=== PATIENT | male | born 1960 | race Caucasian/White ===

== ENCOUNTER 2025-02-01 14:10 | Emergency (ER) | payer OTHER, SELFPAY ==
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
[2025-02-01 14:21] VITALS: BP 151/87; PULSE 100; RESP 19; TEMP 36.6; O2SAT 97; BMI 33.9
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
[2025-02-01 15:36] VITALS: BP 151/87; PULSE 100; RESP 19; TEMP 36.6; O2SAT 97
--- OUTSIDE RECORDS SUMMARY | 2025-02-01 17:53 | XMS_ITS | Encounter Summary ---
Author Organization [employer] [facility] Address [address] [place] [address] [address] [place] [address] Care Team Providers Care Copy Center Operator Name Role Phone Travis Ortiz MD Primary Care Prov ider Encounter Details Date Type Department Care Team (Late st Contact Info) Description 01/15/2024 Orders Only [facility] [address] [place] [address] Travis Ortiz MD [address] [place] [address] Social History Tobacco Use Types Packs/Day Years Used Date Smoking Tobacco: Never Assessed Depression Answer Date Recorded Patient Health Questionnaire-2 Score 0 01/15/2024 Sex and Gender Information Value Date Recorded Sex Assigned at Male 09/24/2022 10:37 AM EDT Legal Sex Male 10:37 AM EDT Gender Identity Male 09/24/2022 10:37 AM EDT Sexual Orientation Straight 09/24/2022 10 :37 AM EDT documented as of this encounter Plan of Treatment Not on file documented as of this encounter Visit Diagnoses Not on filedocumented in this encounter Care Teams Copy Center Operator Relationship Specialty Start Date End Date Travis Ortiz MD [address] [place] [address] PCP - General Internal Medicine 03/21/21 documented as of this encounter
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
--- OUTSIDE RECORDS SUMMARY | 2025-02-01 17:53 | XMS_ITS | Clinical Summary ---
Author Organization [employer] Address [address] [facility] [address] [place] [address] Care Team Providers Care Denture Technician Name Role Phone Travis Ortiz MD Primary Care Prov ider Allergies No known active allergies Medications albuterol 108 (90 Base) MCG/ACT inhaler INHALE 2 PUFFS BY MOUTH EVERY 4 TO 6 HOURS NEEDED 8.5 g 3 3 Active Fluticasone-Salmete rol (Wixela Inhub) 500-50 MCG/ACT aerosol powder Take 500 mg by mouth 2 times daily. 180 each 2 4 Active rosuvastatin (Crestor) 40 MG tabletIndications:M ixed hyperlipidemia TAKE 1 TABLET BY MOUTH EVERY DAY IN THE MORNING 90 tablet 3 4 Active lisinopril-hydroCHL OROthiazide 20-12.5 MG tabletIndications:P rimary hypertension TAKE 1 TABLET BY MOUTH EVERY DAY IN THE MORNING 90 tablet 3 4 Active Active Problems Problem Noted Date Diagnosed Date Primary hypertension 08/20/2023 Assessment & Plan (09/17/2024 12:47 AM EDT): Controlled, continue lisinopril/hydrochlorothiazide, reinforced low sodium diet and exercise as tolerated Assessment & Plan (06/09/2024 3:19 PM EDT): Controlled, reinforced low sodium diet and exercise as tolerated, keep bp log, target <140/90 Assessment & Plan (01/16/2024 9:35 AM EST): Controlled, no changes will be made, reinforced low sodium diet and exercise as tolerated Assessment & Plan (08/20/2023 4:24 PM EDT): Controlled as per patient not above 140/90, reinforced low sodium diet, continue lisinopril/hctz. New labs will be ordered Mixed hyperlipidemia 08/20/2023 Assessment & Plan (06/09/2024 3:20 PM EDT): Controlled, LDL <100, on rosuvastatin 40mg, will order new labs for guidance Assessment & Plan (08/20/2023 4:24 PM EDT): On rosuvastatin, will order labs for guidance of therapy Prostate cancer screening 08/20/2023 Assessment & Plan (08/20/2023 4:24 PM EDT): Will order PSA for screening, no red flags Screening for colon cancer 08/20/2023 Assessment & Plan (08/20/2023 4:30 PM EDT): Done on 2019 good for 5 years Mixed simple and mucopurulent chronic bronchitis 08/20/2023 Assessment & Plan (08/20/2023 4:33 PM EDT): Patient cannot afford advair copayment, will switch to symbicort, ontinue albuterol rescue Encounters Date Type Department Care Team Description 02/01/2025 Orders Only [facility] External Provider, [facility] from Last 3 Months Social History Tobacco Use Types Packs/Day Years Used Date Smoking Tobacco: Every Day Cigarettes 0.5 42.2 Started: 1982 Smokeless Tobacco: Never Tobacco Cessation:Ready to Q uit: Not Asked; Counseling Given: Not Answered Alcohol Use Standard Drinks/Week Comments Never 0 (1 standard drink = 0.6 oz pur e alcohol) Depression Answer Date Recorded Patient Health Questionnaire-2 Score 0 01/15/2024 Sex and Gender Information Value Date Recorded Sex Assigned at Male 09/24/2022 10:37 AM EDT Legal Sex Male 10:37 AM EDT Gender Identity Male 09/24/2022 10:37 AM EDT Sexual Orientation Straight 09/24/2022 10 :37 AM EDT Last Filed Vital Signs Vital Sign Reading Time Taken Comments Blood Pressure 117/77 08/18/2024 2:58 PM EDT Pulse 92 06/07/2022 12:07 AM EDT Temperature - - Respiratory Rate - - Oxygen Saturation - - Inhaled Oxygen Concentration - - Weight 97.5 kg (215 lb) 06/07/2022 12:07 AM EDT Height 165.1 cm (5' 5 ) 06/07/2022 12:07 AM EDT Body Mass Index 35.78 06/07/2022 12:07 AM EDT Plan of Treatment Health Maintenance Due Date Last Done Comments CT Colonography 1960 Colonoscopy 1960 Colorectal Cancer Screening 1960 FIT DNA/Cologuard 1960 FIT 1960 FOBT 1960 SDOH Screening 1960 Sigmoidoscopy 1960 Alcohol/Substance Use Screening 1972 Pneumococcal Vaccine: 50+ Years (2 of 2 - PCV) 11/07/2018 11/07/2017 RSV Patients and Patients Aged 60 years or older (1 - Risk 60-74 years 1-dose series) 2020 COVID-19 Vaccine ( season) 2024 10/28/2022, 05/02/2022, 10/27/2021, Additional history exists Influenza Vaccine (#1) 2024 , 09/15/2021, 11/07/2017 Depression Screening 01/15/2025 01/15/2024, 01/15/20 24 Lung Cancer Screening 07/20/2025 07/20/2024 Tobacco Screening 08/18/2025 08/18/2024 Lipid Panel 07/20/2029 07/20/2024, 10/25, 09/17/2022, Additional history exists DTaP/Tdap/Td Vaccines (2 - Td or Tdap) 06/07/2032 06/07/2022 HIV Screening Completed 09/17/2022 Hepatitis C Screening Completed 09/17/2022 Zoster Vaccines Completed 12/15/2022, 06/07/2022 HIB Vaccines Aged Out No longer eligi ble based on patient's age to complete this topic HPV Vaccines Aged Out No longer eligi ble based on patient's age to complete this topic Hepatitis A Vaccines Aged Out No long er eligible based on patient's age to complete this topic Hepatitis B Vaccines Aged Out No long er eligible based on patient's age to complete this topic IPV Vaccines Aged Out No longer eligi ble based on patient's age to complete this topic Meningococcal Vaccine Aged Out No krishan ángel eligible based on patient's age to complete this topic RSV under 20 months Aged Out No longe r eligible based on patient's age to complete this topic Rotavirus Vaccines Aged Out No longer eligible based on patient's age to complete this topic Procedures Procedure Name Priority Date/Time Associated Diagnosis Comments XR LUMBAR SPINE 2-3 VIEWS Routine 02/01/2025 2:23 PM EDT LDCT LUNG SCREENING Routine 07/20/2024 4 :25 PM EDT LIPID PANEL, STANDARD Routine 07/20/2024 8:07 AM EDT Primary hypertension ZZZ HISTORICAL HEPATITIS C AB W/REFL TO HCV RNA, QN, PCR Routine 09/17/2022 8:36 AM EDT HIV 1/2 ANTIGEN/ANTIBODY, FOURTH GENERATION W/RFL Routine 09/17/2022 8:36 AM EDT from Last 3 Months or Most Recently Relevant to Health Maintenance Results * XR Lumbar Spine 2-3 Views (02/01/2025 2:23 PM EDT) Anatomical Region Laterality Modality Spine, L-spine Radiographic Velia ging 02/01/2025 2:23 PM EDT Narrative 02/01/2025 3:16 PM EDT ? [facility] ?[address] ?[place] [address] ?XRay Report ? Signed ? Patient: Kalli,Jacobo ?MR#: [id number] ?? 34 ? : 1960 ?Acct:[id number] ? Age/Sex: 64 / M ?ADM Date: 03/10/25 ? Loc: HO.ED ? Attending Dr: ? Ordering Physician: Karina Munguia ?? Date of Service: 02/01/25 ?? Procedure(s): XR lumbar spine 2-3V ?? Accession Number(s): [id number] ? cc: Travis Ortiz MD; Karina Munguia [...] DD/ 1423 ? TD/TT: 02/01/25 1507 ? Regulatory Associate: ? Procedure Note Ivan Jj - 02/01/[address] [address] XRay Report Signed Patient: Jacobo MahanMR#: [id number] : 1960Acct:[id number] Age/Sex: 64 / MADM Date: 02/01/25 Loc: HO.ED Attending Dr: Ordering Physician: Karina Munguia Date of Service: 02/01/25 Procedure(s): XR lumbar spine 2-3V Accession Number(s): [id number] cc: Travis Ortiz MD; Karina Munguia EXAMINATION: [...] Norbert Tee MD 02/01/2025 03:13 PM EDT RP Dictated By: Norbert Estrada MD Signed By: <Electronically signed by Norbert Fontaine MDin OV> 02/01/25 1513 DD/ 1423 TD/TT: 02/01/25 1507 Regulatory Associate: [facility] External Provider IMG XR PROCEDURES Final Result * CT Lung Screening Low dose (07/20/2024 4:25 PM EDT) Anatomical Region Laterality Modality Lung Computed Tomogra phy 07/20/2024 4:25 PM EDT Narrative 08/14/2024 12:53 AM EDT ? [facility] ?[address] ?[place] [address] ? CT Scan Report ? Signed ? Patient: Kamran,Jacobo ?MR#: [id number] ?? [id number] ? : 1960 ?Acct:[id number] ? Age/Sex: 64 / M ?ADM Date: 08/26/24 ? Loc: HO.CT ? Attending : Christelle Israel PA-C ? Ordering Physician: Christelle Israel PA-C ?? Date of Service: 07/20/24 ?? Procedure(s): CT lung screening ?? Accession Number(s): [id number] ? cc: Travis Ortiz MD; Christelle Israel PA-C ? EXAMINATION: ?? CT LOW-DOSE SCREENING CHEST WITHOUT CONTRAST ? CLINICAL INFORMATION: ?? Nicotine dependence, cigarettes, uncomplicated. The patient is a ?? current smoker with a 29 pack-year history of smoking. ? COMPARISON: ?? CT chest August 03, 2022. ? TECHNIQUE: ?? Multidetector volumetric CT imaging of the chest is performed on a ?? Siemens SOMATOM Definition scanner without contrast using low dose ?? technique. Additional 2D coronal and sagittal reformatted images and ?? axial 3D maximum intensity projection (MIP) images are generated on the ?? CT workstation. ? This CT examination was performed using dose optimization techniques as ?? appropriate, variously including the following: ?? *Automated exposure control ?? *Adjustment of mA and/or kV according to patient size (this includes ?? techniques or standardized protocols for targeted exams where dose is ?? matched to indication/reason for exam; i.e. extremities or head) ?? *Use of iterative reconstruction technique ? TOTAL EXAM DLP: ?? 61 mGy-cm. ? CTDIvol: ?? 2.07 mGy. ? FINDINGS: ? PULMONARY NODULES: There is a single tiny 1 to 2 mm punctate nodule in ?? the right lower lobe (5:203). No suspicious pulmonary nodules. ? LUNGS: Lungs bilaterally symmetrically expanded. There is mild ?? emphysema and bronchial thickening without bronchiectasis. No effusion ?? or pneumothorax. Central airways patent. ? MEDIASTINUM: No mediastinal, hilar or axillary adenopathy or free fluid ?? collection. ? CORONARY ARTERY CALCIFICATION: Moderate. ? THYROID GLAND: Unremarkable to the extent seen. ? CARDIOVASCULAR STRUCTURES: Aortic and heart size normal. No pericardial ?? effusion. Pericardial calcification is present. ? CHEST WALL/AXILLA: Unremarkable. ? UPPER ABDOMEN: Included portions of the solid organs in the upper ?? abdomen unremarkable on noncontrast imaging. ? OSSEOUS STRUCTURES: No suspicious focal findings. ? CT/CT lung screening ?? IMPRESSION: ?? Unremarkable examination. ? ASSESSMENT: ?? 1. Lung-RADS Category 2: Benign appearance or behavior of nodules. N/A ? 2. Lung-RADS Category S: Negative. There are no clinically significant ?? or potentially clinically significant findings not related to the lungs ?? requiring urgent additional evaluation. ? RECOMMENDATION: ?? Continued routine annual low-dose CT lung screening in 1 year is ?? recommended. An order for CT CHEST LOW DOSE CANCER SCREENING ([id number]) ?? can be placed. ? Electronically signed by: ??Alistair Shukla MD ??08/14/2024 12:50 AM EDT ?? RP ? Dictated By: ?Alistair Shukla MD ? Signed By: ?<Electronically signed by Alistair Shukla MD in OV> ? 08/14/240 ? DD/ 1625 ? TD/TT: 07/20/24 1639 ? Regulatory Associate: SS ? Procedure Note Ivan Jj - 08/14/[address] [place] [address] [address] Scan Report Signed Patient: Jacobo AndrewMR#: [id number] : 1960Acct:[id number] Age/Sex: 64 / MADM Date: 07/20/24 Loc: HO.CT Attending Dr: Christelle Israel PA-C Ordering Physician: Christelle Israel PA-C Date of Service: 07/20/24 Procedure(s): CT lung screening Accession Number(s): [id number] cc: Travis Ortiz MD; Christelle Israel PA-C EXAMINATION: CT LOW-DOSE SCREENING CHEST WITHOUT CONTRAST CLINICAL INFORMATION: Nicotine dependence, cigarettes, uncomplicated. The patient is a current smoker with a 29 pack-year history of smoking. COMPARISON: CT chest August 03, 2022. TECHNIQUE: Multidetector volumetric CT imaging of the chest is performed on a Siemens SOMATOM Definition scanner without contrast using low dose technique. Additional 2D coronal and sagittal reformatted images and axial 3D maximum intensity projection (MIP) images are generated on the CT workstation. This CT examination was performed using dose optimization techniques as appropriate, variously including the following: *Automated exposure control *Adjustment of mA and/or kV according to patient size (this includes techniques or standardized protocols for targeted exams where dose is matched to indication/reason for exam; i.e. extremities or head) *Use of iterative reconstruction technique TOTAL EXAM DLP: 61 mGy-cm. CTDIvol: 2.07 mGy. FINDINGS: PULMONARY NODULES: There is a single tiny 1 to 2 mm punctate nodule in the right lower lobe (5:203). No suspicious pulmonary nodules. LUNGS: Lungs bilaterally symmetrically expanded. There is mild emphysema and bronchial thickening without bronchiectasis. No effusion or pneumothorax. Central airways patent. MEDIASTINUM: No mediastinal, hilar or axillary adenopathy or free fluid collection. CORONARY ARTERY CALCIFICATION: Moderate. THYROID GLAND: Unremarkable to the extent seen. CARDIOVASCULAR STRUCTURES: Aortic and heart size normal. No pericardial effusion. Pericardial calcification is present. CHEST WALL/AXILLA: Unremarkable. UPPER ABDOMEN: Included portions of the solid organs in the upper abdomen unremarkable on noncontrast imaging. OSSEOUS STRUCTURES: No suspicious focal findings. CT/CT lung screening IMPRESSION: Unremarkable examination. ASSESSMENT: 1. Lung-RADS Category 2: Benign appearance or behavior of nodules. N/A 2. Lung-RADS Category S: Negative. There are no clinically significant or potentially clinically significant findings not related to the lungs requiring urgent additional evaluation. RECOMMENDATION: Continued routine annual low-dose CT lung screening in 1 year is recommended. An order for CT CHEST LOW DOSE CANCER SCREENING ([id number]) can be placed. Electronically signed by: Alistair Shukla MD 08/14/2024 12:50 AM EDT Dictated By: Alistair Shukla MD Signed By: <Electronically signed by Alistair Shukla MD in OV> 08/14/24 0050 DD/ 1625 TD/TT: 07/20/24 1639 Regulatory Associate: SS [facility] External Provider IMG CT PROCEDURES Final Result * Lipid Panel, Standard (07/20/2024 8:07 AM EDT) Triglycerides 82 <150 mg/dL [facility] Comment:Desirable Triglyceri de: less than 150 mg/dLBorderline High Triglyceride 150-199 mg/dLHigh Triglyceride: 200-499 mg/dLVery High Triglyceride: greater than or equal to 5OO mg/dL Cholesterol 118 <200 mg/dL [facility] Comment:Desirable Cholestero l: less than 200 mg/dLBorderline High Cholesterol: 200-239 mg/dLHigh Cholesterol: greater than 239 mg/dL LDL Cholesterol Calculated 59 <100 mg/dL [facility] Comment:Desirable LDL: less than 100 mg/dLNear Optimal/Above Optimal LDL: 110- 129 mg/dLBorderline High LDL: 130-159 mg/dLHigh LDL: 160-189 mg/dLVery High LDL: greater than or equal to 190 mg/dL HDL Cholesterol 43 >40 mg/dL [facility] Comment:Desirable HDL: great er than 40 mg/dL Note: This HDL assay may give artificially low results in patients with liver disease. Blood Venous blood specimen / Unknown 07/20/2024 8:07 AM EDT 07/20/2024 2:33 PM EDT Travis Silva MD LAB BLOOD ORDERABL ES Final Result Performing Organization Address [facility] de Phone Number [facility] [address] [place] [phone] * HEPATITIS C AB W/REFL TO HCV RNA, QN, PCR (09/17/2022 8:36 AM EDT) HEPATITIS C ANTIBODY NON-REACTI VE NON-REACT [facility] INDEX 0.04 <1.00 [facility] Comment: ?? HCV antibody was non-reactive. There is no laboratory ?? evidence of HCV infection. ?? In most cases, no further action is required. However, if recent HCV exposure is suspected, a test for HCV RNA (test code 80038) is suggested. ?? For additional information please refer to http://education.[employer].myThings/faq/QYW47l6 (This link is being provided for informational/ educational purposes only.) ?? 09/17/2022 8:36 AM EDT Travis Silva MD HISTORICAL/NON ORD ERABLE LABS Final Result Performing Organization Address City/[facility] Co de Phone Number [facility] * HIV 1/2 ANTIGEN/ANTIBODY,FOURTH GENERATION W/RFL (09/17/2022 8:36 AM EDT) HIV-1/2 ANTIGEN AND ANTIBODIES, 4TH GENERATION W/ REFLEX NON-REACT [facility] NON-REACT [facility] Comment: HIV-1 antigen and HIV-1/HIV-2 antibodies were not detected. There is no laboratory evidence of HIV infection. ?? PLEASE NOTE: This information has been disclosed to you from records whose confidentiality may be protected by state law. ??If your state requires such protection, then the state law prohibits you from making any further disclosure of the information without the specific written consent of the person to whom it pertains, or as otherwise permitted by law. A general authorization for the release of medical or other information is NOT sufficient for this purpose. ? For additional information please refer to http://[employer].com.Syncbak/faq/EKK393 (This link is being provided for informational/ educational purposes only.) ? The performance of this assay has not been clinically validated in patients less than 2 years old. ?? 09/17/2022 8:36 AM EDT Travis Silva MD LAB BLOOD ORDERABL ES Final Result [facility] from Last 3 Months or Most Recently Relevant to Health Maintenance Insurance [facility] PPO Care Teams Denture Technician Relationship Specialty Start Date End Date Travis Ortiz MD [address] [place] [phone] PCP - General Internal Medicine 03/21/21
== END 2025-02-01 16:08 | disposition home or self-care (01) ==
LOC: HO.ED 15:57
PROVIDERS: Emergency Provider Emergency Medicine; PCP Internal Medicine
DX: S39.012A Strain of muscle, fascia and tendon of lower back, initial encounter (principal); V43.52XA Car driver injured in collision with other type car in traffic accident, initial encounter; Y93.89 Activity, other specified; Y92.414 Local residential or business street as the place of occurrence of the external cause; Y99.9 Unspecified external cause status
CPT/HCPCS: 72100; 99282; 99283

== ENCOUNTER → 2025-02-01 14:23 | Outpatient (BNV) | payer BC, SELFPAY | PROVIDERS: Emergency Provider Emergency Medicine; PCP Internal Medicine; Visit Provider Radiology Diagnostic Radiology | DX: M47.815 Spondylosis without myelopathy or radiculopathy, thoracolumbar region (principal) | CPT/HCPCS: 72100 ==